=== PATIENT | female | born 1945 | race Hispanic/Latino ===

== ENCOUNTER → 2024-01-09 | Day surgery (SDC) | payer MEDICARE, OTHER ==
[~2024-01-09] MED LIST: ASPIRIN EC81 MG PO; COREG12.5 MG PO; DICYCLOMINE HCL10 MG PO; ELIQUIS5 MG PO; FENTANYL CITRATE/PF 100MCG/2 ML INJ ONE; FEROSUL325 MG PO; FUROSEMIDE40 MG PO; ISOSORBIDE DINI20 MG PO; JARDIANCE10 MG PO; LACTATED RINGER'S 1,000 ML ONE; LEXAPRO10 MG PO; LOSARTAN POTASS25 MG PO; METFORMIN HCL500 M2 PO; MULTI-VITAMIN1 EACH PO; OMEGA 3 1,0001 EACH PO; SPIRONOLACTONE25 MG PO; VITAMIN B-121000 MCG PO
[2024-01-09 10:44] LABS: BASOPHILS % 0.3 % (0.0-1.0); EOSINOPHILS % 0.7 % (0.0-6.0); HEMATOCRIT 36.4 % (34.2-44.1); HEMOGLOBIN 11.8 g/dL (12.0-16.0); LYMPHOCYTES # (AUTO) 1.1 (1.0-3.2); LYMPHOCYTES % 17.9 % (18.0-39.1); MEAN CORPUSCULAR HEMOGLOBIN 32.5 pg (28-32); MEAN CORPUSCULAR HGB CONC 32.4 g/dL (31-35); MEAN CORPUSCULAR VOLUME 100.3 fL (81-99); MONOCYTES # (AUTO) 0.4 (0.2-0.8); MONOCYTES % 6.2 % (4.4-11.3); NEUTROPHILS # (AUTO) 4.6 (2.1-6.9); NEUTROPHILS % 74.7 % (38.7-80.0); PLATELET COUNT 214 x10e3/uL (140-360); RED BLOOD COUNT 3.63 x10e6/uL (3.6-5.1); RED CELL DISTRIBUTION WIDTH 13.4 % (11.7-14.4); WHITE BLOOD COUNT 6.14 x10e3/uL (4.8-10.8)
[2024-01-09 13:38] VITALS: TEMP 97
[2024-01-09 14:00] VITALS: BP 162/73; PULSE 71; RESP 18; O2SAT 99
== END | disposition home or self-care (01) ==
LOC: OR 09:11
PROVIDERS: ATTEND Internal Medicine Gastroenterology
DX: D64.9 Anemia, unspecified (principal); K29.50 Unspecified chronic gastritis without bleeding; K31.A11 Gastric intestinal metaplasia without dysplasia, involving the antrum; K21.9 Gastro-esophageal reflux disease without esophagitis; K44.9 Diaphragmatic hernia without obstruction or gangrene; K62.5 Hemorrhage of anus and rectum; K57.30 Diverticulosis of large intestine without perforation or abscess without bleeding; K64.8 Other hemorrhoids; I10 Essential (primary) hypertension; E11.9 Type 2 diabetes mellitus without complications; M19.90 Unspecified osteoarthritis, unspecified site; G89.29 Other chronic pain; N20.0 Calculus of kidney; F32.A Depression, unspecified; Z79.02 Long term (current) use of antithrombotics/antiplatelets; Z79.82 Long term (current) use of aspirin; Z79.84 Long term (current) use of oral hypoglycemic drugs; Z79.899 Other long term (current) drug therapy; Z86.718 Personal history of other venous thrombosis and embolism; Z95.0 Presence of cardiac pacemaker
CPT/HCPCS: 36415; 43239; 45378; 85025; 88305; 88342; 93005; J7121